=== PATIENT | female | born 1990 ===

== ENCOUNTER → 2022-12-16 | Outpatient (CLI) | payer BC ==
[~2022-12-16] MED LIST: CIPR500 PO; IBUP800 PO; Mirena1 EACH VAG
== END | disposition home or self-care (01) ==
LOC: LAB 10:56 → LAB SHORT 10:56
DX: O09.893 Supervision of other high risk pregnancies, third trimester (principal)
CPT/HCPCS: 87081; 87150

== ENCOUNTER 2023-01-07 13:50 | Inpatient (IN) | payer BC ==
[~2023-01-07] VITALS: Ht 157.5 cm; Wt 70.9 kg
[2023-01-07] VITALS (8 sets, daily range): BP systolic 93–129; BP diastolic 52–80
[2023-01-07 14:56] LABS: BASOPHILS ABSOLUTE AUTO 0.04 K/mm3 (0.00-0.23); BASOPHILS PERCENT AUTO 0 % (0-2); EOSINOPHILS ABSOLUTE AUTO 0.17 K/mm3 (0.00-0.68); EOSINOPHILS PERCENT AUTO 2 % (0-6); Hematocrit 41.6 % (33.0-51.0); Hemoglobin 14.8 g/dL (11.5-16.0); IMMATURE GRAN ABSOLUTE AUTO 0.04 K/mm3 (0.00-0.10); IMMATURE GRAN PERCENT AUTO 0 % (0-1); LYMPHOCYTES ABSOLUTE AUTO 2.62 K/mm3 (0.84-5.20); LYMPHOCYTES PERCENT AUTO 25 % (21-46); MONOCYTES ABSOLUTE AUTO 0.62 K/mm3 (0.16-1.47); MONOCYTES PERCENT AUTO 6 % (4-13); Mean Corpuscular HGB 32.5 pg (26.0-34.0); Mean Corpuscular HGB Conc 35.6 g/dL (31.5-36.5); Mean Corpuscular Volume 91 fL (80-100); NEUTROPHILS ABSOLUTE AUTO 7.11 K/mm3 (1.96-9.15); NEUTROPHILS PERCENT AUTO 67 % (41-73); Platelet Count 168 K/mm3 (150-400); RDW Coefficient Variation 12.2 % (11.7-14.2); RDW Standard Deviation 40.2 fL (35.1-46.3); Red Blood Cell Count 4.55 M/mm3 (3.80-5.20)
[2023-01-07] MEDS ORDERED: PROP50 PO (22:19)
[2023-01-08] VITALS (20 sets, daily range): BP systolic 102–176; BP diastolic 54–94
--- NOTE | 2023-01-08 19:11 | NUR ---
STABLE REPT TO PM SHIFT
[2023-01-09 05:00] VITALS: BP 112/55
[2023-01-09 06:52] LABS: BASOPHILS ABSOLUTE AUTO 0.05 K/mm3 (0.00-0.23); BASOPHILS PERCENT AUTO 0 % (0-2); EOSINOPHILS ABSOLUTE AUTO 0.08 K/mm3 (0.00-0.68); EOSINOPHILS PERCENT AUTO 1 % (0-6); IMMATURE GRAN ABSOLUTE AUTO 0.09 K/mm3 (0.00-0.10); IMMATURE GRAN PERCENT AUTO 1 % (0-1); LYMPHOCYTES ABSOLUTE AUTO 2.43 K/mm3 (0.84-5.20); LYMPHOCYTES PERCENT AUTO 15 % (21-46); MONOCYTES PERCENT AUTO 5 % (4-13); Mean Corpuscular HGB 32.6 pg (26.0-34.0); Mean Corpuscular HGB Conc 35.1 g/dL (31.5-36.5); Mean Corpuscular Volume 93 fL (80-100); NEUTROPHILS ABSOLUTE AUTO 13.04 K/mm3 (1.96-9.15); NEUTROPHILS PERCENT AUTO 79 % (41-73); Platelet Count 128 K/mm3 (150-400); RDW Coefficient Variation 12.1 % (11.7-14.2); RDW Standard Deviation 41.6 fL (35.1-46.3); Red Blood Cell Count 3.99 M/mm3 (3.80-5.20); White Blood Cell Count 16.59 K/mm3 (4.00-11.30)
[2023-01-09 06:54] LABS: Mean Platelet Volume 13.4 fL (9.1-12.4)
[2023-01-09 08:01] VITALS: BP 128/78
[2023-01-09 12:15] VITALS: BP 126/66
== END 2023-01-09 13:10 | disposition home or self-care (01) | DRG 806 ==
LOC: BC 13:50 → OBS 13:50 → BC 14:32
PROVIDERS: ADMIT Obstetrics & Gynecology
PROC: 10E0XZZ Delivery of Products of Conception, External Approach (ICD-10-PCS; principal; 2023-01-08)
PROC: 10D17Z9 Manual Extraction of Products of Conception, Retained, Via Natural or Artificial Opening (ICD-10-PCS; 2023-01-08)
PROC: 00HU33Z Insertion of Infusion Device into Spinal Canal, Percutaneous Approach (ICD-10-PCS; 2023-01-08)
PROC: 3E0R3BZ Introduction of Anesthetic Agent into Spinal Canal, Percutaneous Approach (ICD-10-PCS; 2023-01-08)
PROC: 3E033VJ Introduction of Other Hormone into Peripheral Vein, Percutaneous Approach (ICD-10-PCS; 2023-01-08)
PROC: 3E0P7VZ Introduction of Hormone into Female Reproductive, Via Natural or Artificial Opening (ICD-10-PCS; 2023-01-08)
DX: O44.43 Low lying placenta NOS or without hemorrhage, third trimester (principal); O72.1 Other immediate postpartum hemorrhage; Z37.0 Single live birth; O99.284 Endocrine, nutritional and metabolic diseases complicating childbirth; O13.4 Gestational [pregnancy-induced] hypertension without significant proteinuria, complicating childbirth; Z3A.39 39 weeks gestation of pregnancy; Z67.40 Type O blood, Rh positive; O70.0 First degree perineal laceration during delivery; Z88.5 Allergy status to narcotic agent; Z88.8 Allergy status to other drugs, medicaments and biological substances; Z79.899 Other long term (current) drug therapy
CPT/HCPCS: 36415; 51702; 85025; 86850; 86900; 86901; A9270; J1720; J1885; J2210; J2590; J3010; J7120

== ENCOUNTER → 2023-04-15 | Outpatient (CLI) | payer BC ==
[~2023-04-15] MED LIST changes: +PROP50 PO
[2023-04-15 17:53] LABS: Thyroid Stimulating Hormone <0.005 uIU/mL (0.360-4.800); Triiodothyronine, Free 7.45 pg/mL (2.18-3.98)
== END | disposition home or self-care (01) ==
LOC: LAB 14:16 → LAB SHORT 14:16
PROVIDERS: Internal Medicine Endocrinology, Diabetes & Metabolism
DX: E05.00 Thyrotoxicosis with diffuse goiter without thyrotoxic crisis or storm (principal)
CPT/HCPCS: 84439; 84443; 84481

== ENCOUNTER → 2024-10-17 | Outpatient (CLI) | payer BC ==
[~2024-10-17] MED LIST changes: +PRENATAL TABLE1 EAC2 PO
[2024-10-18 13:44] LABS: Creatinine, Urine Random 17.5 mg/dL (27.00-270.00); Protein, Urine Random 7.4 mg/dL (0.0-11.9); Protein/Creat Ratio, Ur Random 0.4
== END ==
LOC: LAB 17:50 → LAB SHORT 17:50
PROVIDERS: Obstetrics & Gynecology
DX: R03.0 Elevated blood-pressure reading, without diagnosis of hypertension (principal)
CPT/HCPCS: 82570; 84156

== ENCOUNTER 2024-10-23 20:09 | Inpatient (IN) | payer BC ==
[~2024-10-23] VITALS: Ht 154.9 cm; Wt 76.4 kg
[2024-10-23] VITALS (9 sets, daily range): BP systolic 106–128; BP diastolic 56–86
[~2024-10-23 20:09] MED LIST changes: -PRENATAL TABLE1 EAC2 PO
[2024-10-23] MEDS ORDERED: Carboprost Tromethamine 250 MCG/ML 1ML Amp IM PRN (20:15)
[2024-10-23] MEDS ORDERED: Misoprostol 200 MCG Tab BC PRN (20:15)
[2024-10-23] MEDS ORDERED: Misoprostol 200 MCG Tab PR PRN (20:15)
[2024-10-23] MEDS ORDERED: Oxytocin 10 Unit / ML Vial IM PRN (20:15)
[2024-10-23] MEDS ORDERED: Methylergonovine Maleate 0.2MG / ML 1ML Amp IM PRN (20:15)
[2024-10-23] MEDS ORDERED: Lactated Ringer's 1,000 ML IV PRN ×4 (20:15→20:20)
[2024-10-23] MEDS ORDERED: OXYTOCIN/RINGER'S LACTATE 500 ML IV SCH (20:15)
[2024-10-23] MEDS ORDERED: OXYTOCIN/RINGER'S LACTATE 500 ML IV PRN (20:15)
[2024-10-23] MEDS ORDERED: ePHEDrine Sulfate 50 MG/ML 1ML Injection XX PRN (20:15)
[2024-10-23] MEDS ORDERED: Tranexamic Acid 100 ML IV SCH (20:15)
[2024-10-23] MEDS ORDERED: FentaNYL 2mcg/ml-Bup 0.1% Epd 250 ML EPI PRN (20:15)
[2024-10-23] MEDS ORDERED: Misoprostol 25 MCG Tab VAG PRN (20:20)
[2024-10-23] MEDS ORDERED: Acetaminophen 500 MG Tab PO PRN (20:20)
[2024-10-23] MEDS ORDERED: Ondansetron HCl 2 MG / ML 2ML Vial IV PRN (20:20)
[2024-10-23] MEDS ORDERED: Calcium Carbonate 500 MG Tab Chew PO PRN (20:20)
[2024-10-23] MEDS ORDERED: FentaNYL Citrate 50 MCG/ML 2 ML Injection IV PRN (20:25)
[2024-10-23 20:58] LABS: BASOPHILS ABSOLUTE AUTO 0.05 K/mm3 (0.00-0.23); BASOPHILS PERCENT AUTO 0 % (0-2); EOSINOPHILS ABSOLUTE AUTO 0.19 K/mm3 (0.00-0.68); EOSINOPHILS PERCENT AUTO 1 % (0-6); Hematocrit 41.3 % (33.0-51.0); Hemoglobin 14.4 g/dL (11.5-16.0); IMMATURE GRAN ABSOLUTE AUTO 0.05 K/mm3 (0.00-0.10); IMMATURE GRAN PERCENT AUTO 0 % (0-1); LYMPHOCYTES ABSOLUTE AUTO 2.98 K/mm3 (0.84-5.20); LYMPHOCYTES PERCENT AUTO 21 % (21-46); MONOCYTES ABSOLUTE AUTO 1.06 K/mm3 (0.16-1.47); MONOCYTES PERCENT AUTO 8 % (4-13); Mean Corpuscular HGB Conc 34.9 g/dL (31.5-36.5); Mean Corpuscular Volume 92 fL (80-100); NEUTROPHILS ABSOLUTE AUTO 9.63 K/mm3 (1.96-9.15); NEUTROPHILS PERCENT AUTO 69 % (41-73); Platelet Count 177 K/mm3 (150-400); RDW Coefficient Variation 12.8 % (11.7-14.2); RDW Standard Deviation 42.9 fL (35.1-46.3); White Blood Cell Count 13.96 K/mm3 (4.00-11.30)
[2024-10-23] MEDS ORDERED: PRENATAL TABLE1 EAC2 PO (21:03)
[2024-10-24] VITALS (34 sets, daily range): BP systolic 107–176; BP diastolic 59–140
[2024-10-24] MEDS ORDERED: CeFAZolin Sodium 2,000 MG in NS 100 ML IV ONE (12:15)
[2024-10-24] MEDS ORDERED: Misoprostol 200 MCG Tab PR PRN (13:35)
[2024-10-24] MEDS ORDERED: Benzocaine Topical Anesthetic Spray 60GM TOP PRN (13:40)
[2024-10-24] MEDS ORDERED: OXYTOCIN/RINGER'S LACTATE 500 ML IV SCH (13:40)
[2024-10-24] MEDS ORDERED: Lanolin Cream TOP PRN (13:40)
[2024-10-24] MEDS ORDERED: Docusate Sodium 100 MG Cap PO PRN (13:40)
[2024-10-24] MEDS ORDERED: Acetaminophen 325 MG TABLET PO PRN (13:40)
[2024-10-24] MEDS ORDERED: FLU VACC TS2024-25(6MOS UP)/PF 45 MCG/0.5 ML SYRINGE IM ONE (13:40)
[2024-10-24] MEDS ORDERED: Carboprost Tromethamine 250 MCG/ML 1ML Amp IM PRN (13:40)
[2024-10-24] MEDS ORDERED: Lactated Ringer's 1,000 ML IV SCH (13:45)
[2024-10-24] MEDS ORDERED: Ketorolac Tromethamine 30mg Vial IV PRN (13:45)
[2024-10-24] MEDS ORDERED: Witch Hazel/Glycerin PADS TOP PRN (13:45)
[2024-10-24] MEDS ORDERED: Ibuprofen 400 MG Tab PO PRN (13:45)
--- NOTE | 2024-10-24 15:04 | NUR ---
PT IS STARTING TO GET FEELING BACK IN LEGS, ENCOURAGED PT TO WIGGLE TOES, PT NEEDS TO VOID SOON, BUT LEGS AREN'T STURDY YET
[2024-10-25 04:23] VITALS: BP 115/59
[2024-10-25 07:21] VITALS: BP 138/71
[2024-10-25] MEDS ORDERED: Prenatal Vit/FE Fumarate/FA 1 Tab PO SCH (09:00)
[2024-10-25 13:42] VITALS: BP 129/83
== END 2024-10-25 13:50 | disposition home or self-care (01) | DRG 798 ==
LOC: OBS 20:09 → BC 20:12 → OBS 20:15 → BC 20:17
PROVIDERS: ADMIT Obstetrics & Gynecology
PROC: 3E0P7VZ Introduction of Hormone into Female Reproductive, Via Natural or Artificial Opening (ICD-10-PCS; 2024-10-23)
PROC: 10E0XZZ Delivery of Products of Conception, External Approach (ICD-10-PCS; principal; 2024-10-24)
PROC: 10D17ZZ Extraction of Products of Conception, Retained, Via Natural or Artificial Opening (ICD-10-PCS; 2024-10-24)
PROC: 10907ZC Drainage of Amniotic Fluid, Therapeutic from Products of Conception, Via Natural or Artificial Opening (ICD-10-PCS; 2024-10-24)
PROC: 4A1HXCZ Monitoring of Products of Conception, Cardiac Rate, External Approach (ICD-10-PCS; 2024-10-24)
DX: O14.04 Mild to moderate pre-eclampsia, complicating childbirth (principal); Z37.0 Single live birth; Z3A.38 38 weeks gestation of pregnancy; Z88.5 Allergy status to narcotic agent; Z88.8 Allergy status to other drugs, medicaments and biological substances; E05.00 Thyrotoxicosis with diffuse goiter without thyrotoxic crisis or storm; O99.284 Endocrine, nutritional and metabolic diseases complicating childbirth; O69.81X0 Labor and delivery complicated by cord around neck, without compression, not applicable or unspecified; O66.0 Obstructed labor due to shoulder dystocia; O72.2 Delayed and secondary postpartum hemorrhage
CPT/HCPCS: 36415; 51702; 59025; 80053; 82570; 84156; 85025; 86850; 86900; 86901; 99214; A9270; J0690; J1885; J7120

== ENCOUNTER 2024-12-04 18:08 | Emergency (ER) | payer BC ==
[~2024-12-04] VITALS: Ht 154.9 cm; Wt 64.4 kg
[~2024-12-04 18:08] MED LIST changes: +PRENATAL TABLE1 EAC2 PO
[2024-12-04 18:48] LABS: BASOPHILS ABSOLUTE AUTO 0.03 K/mm3 (0.00-0.23); BASOPHILS PERCENT AUTO 0 % (0-2); EOSINOPHILS ABSOLUTE AUTO 0.32 K/mm3 (0.00-0.68); EOSINOPHILS PERCENT AUTO 4 % (0-6); Hematocrit 41.9 % (33.0-51.0); Hemoglobin 14.4 g/dL (11.5-16.0); IMMATURE GRAN ABSOLUTE AUTO 0.02 K/mm3 (0.00-0.10); IMMATURE GRAN PERCENT AUTO 0 % (0-1); LYMPHOCYTES ABSOLUTE AUTO 3.33 K/mm3 (0.84-5.20); LYMPHOCYTES PERCENT AUTO 39 % (21-46); MONOCYTES ABSOLUTE AUTO 0.49 K/mm3 (0.16-1.47); MONOCYTES PERCENT AUTO 6 % (4-13); Mean Corpuscular HGB 31.6 pg (26.0-34.0); Mean Corpuscular HGB Conc 34.4 g/dL (31.5-36.5); Mean Corpuscular Volume 92 fL (80-100); Mean Platelet Volume 12.4 fL (9.1-12.4); NEUTROPHILS ABSOLUTE AUTO 4.43 K/mm3 (1.96-9.15); NEUTROPHILS PERCENT AUTO 52 % (41-73); Platelet Count 202 K/mm3 (150-400); RDW Coefficient Variation 12.1 % (11.7-14.2); RDW Standard Deviation 41.3 fL (35.1-46.3); Red Blood Cell Count 4.56 M/mm3 (3.80-5.20); White Blood Cell Count 8.62 K/mm3 (4.00-11.30)
[2024-12-04] MEDS ORDERED: DiphenhydrAMINE HCl 50 MG/ML 1ML Vial IV ONE (18:50)
[2024-12-04] MEDS ORDERED: Prochlorperazine Edisylate 10 mg Vial IV ONE (18:50)
[2024-12-04 18:52] LABS: Source, Urine Clean Catch
[2024-12-04 18:55] LABS: Appearance, Urine Hazy (Clear); Bilirubin, Urine Neg (Neg); Blood, Urine Neg (Neg); Glucose Qualitative, Urine Neg (Neg); Ketones, Urine Neg (Neg); Leukocyte Esterase, Urine Neg (Neg); Nitrite, Urine Neg (Neg); Protein, Urine Neg (Neg); Urobilinogen, Urine NORM (Normal)
[2024-12-04 19:03] LABS: Bun/Creatinine Ratio 36.4 (12.0-20.0); Calcium, Blood 9.7 mg/dL (8.5-10.1); Creatinine, Blood 0.55 mg/dL (0.40-1.00); Potassium, Blood 3.6 mmol/L (3.5-5.5)
[2024-12-04 19:05] LABS: Color, Urine Pale Yellow (P-Yellow)
[2024-12-04 19:10] LABS: Bacteria Few /hpf; Red Blood Cells, Urine 0-2 /hpf (0-2); Squamous Epithelial Cells Few /hpf (Few); White Blood Cells, Urine 0-2 /hpf (0-5)
[2024-12-04 19:24] LABS: Albumin/Globulin Ratio 1.2 (0.8-1.8); Bilirubin, Total 0.3 mg/dL (0.1-1.0); Globulin, Blood 3.2 g/dL (2.2-4.0); Total Protein, Blood 7.2 g/dL (6.4-8.2)
[2024-12-04 21:18] VITALS: BP 116/76
== END 2024-12-04 21:18 | disposition home or self-care (01) ==
LOC: ER 18:08
PROVIDERS: Emergency Medicine
DX: R51.9 Headache, unspecified (principal); Z88.5 Allergy status to narcotic agent; Z88.1 Allergy status to other antibiotic agents; Z79.899 Other long term (current) drug therapy
CPT/HCPCS: 70450; 70496; 80053; 81001; 85025; 96374-59; 96375-59; 99284-25; J0780; J1200; Q9967

== ENCOUNTER → 2025-01-10 | Outpatient (CLI) | payer BC ==
[2025-01-10 15:20] LABS: Bacterial Vaginosis PCR Negative (NEGATIVE); Candida Group, PCR NOT DETECTED (NOT DETECT); Candida glabrata-krusei, PCR NOT DETECTED (NOT DETECT)
== END ==
LOC: LAB SHORT 11:28 → LAB 11:28
PROVIDERS: Obstetrics & Gynecology
DX: N76.0 Acute vaginitis (principal)
CPT/HCPCS: 81515